=== PATIENT | female | born 1955 | race American Indian/Alaskan Native ===

== ENCOUNTER 2021-02-13 08:54 | Outpatient (CLI) | payer OTHER ==
--- NOTE | 2021-02-13 11:44 | XRay Report ---
Lumbar spine-3 views INDICATION: PAIN. Acute generalized low back pain COMPARISON: None. IMPRESSION: Mild dextroscoliosis centered at L2. Grade 1 anterolisthesis of L3 on L4 and L4 on L5 wit h advanced facet arthropathy likely accounting for these findings. There is also mild lower lumbar d iscogenic DJD. No acute osseous or soft tissue abnormality. Signer Name: Lobo Rapp MD Signed: 02/13/2021 11:40 AM Workstation Name: [id number]
--- NOTE | 2021-02-13 11:46 | XRay Report ---
Right hand-2 views INDICATION: Acute generalized right hand pain. COMPARISON: None. IMPRESSION: No acute osseous abnormality. Soft tissues are normal. Normal alignment. No significa nt DJD. Signer Name: Lobo Rapp MD Signed: 02/13/2021 11:42 AM Workstation Name: [id number]
== END 2021-02-13 08:55 | disposition home or self-care (01) ==
LOC: XRAY 08:54
PROVIDERS: ATTEND Internal Medicine
DX: Z02.71 Encounter for disability determination (principal); M47.814 Spondylosis without myelopathy or radiculopathy, thoracic region; M79.641 Pain in right hand
CPT/HCPCS: 72100